=== PATIENT | female | born 1940 | race Caucasian/White ===

== ENCOUNTER → 2017-05-03 | Outpatient (CLI) | payer MEDICARE, OTHER ==
[~2017-05-03] MED LIST: CALCIUM 600MG+D1 TAB PO; COVARYX HS PO; CRESTOR20 MG PO; FLOVENT DI50 MCG/Act IH; MULTI VITAMINS1 TAB PO; NORETHINDRONE AC5 MG PO; OMEGA-31 SGL PO; PROTONIX 40MG T40 MG PO; SINGULAIR 110 MG/TAB PO; TENORMIN 2525 MG/TAB PO; VENTOLIN0.09 MG IH; ZYRTEC 10MG10 MG PO
== END ==
LOC: MC.RAD 08:00
DX: Z12.31 Encounter for screening mammogram for malignant neoplasm of breast (principal)

== ENCOUNTER → 2018-03-29 | Outpatient (CLI) | payer MEDICARE, OTHER | LOC: COL.RAD 07:08 | DX: R91.1 Solitary pulmonary nodule (principal); Z87.09 Personal history of other diseases of the respiratory system | CPT/HCPCS: Q9967 ==

== ENCOUNTER → 2018-06-12 | Outpatient (CLI) | payer MEDICARE, OTHER | LOC: MC.RAD 08:15 | DX: Z12.31 Encounter for screening mammogram for malignant neoplasm of breast (principal) ==

== ENCOUNTER 2019-02-07 17:37 | Emergency (ER) | payer MEDICARE, OTHER ==
[~2019-02-07] VITALS: Ht 162.6 cm; Wt 78.2 kg
[2019-02-07 17:42] VITALS: BP 137/97; TEMP 97.8
[2019-02-07 19:42] VITALS: PULSE 80
== END 2019-02-07 19:44 | disposition home or self-care (01) ==
LOC: COL.ER 17:37
DX: S01.81XA Laceration without foreign body of other part of head, initial encounter (principal); Z23 Encounter for immunization; W19.XXXA Unspecified fall, initial encounter; Y92.009 Unspecified place in unspecified non-institutional (private) residence as the place of occurrence of the external cause

== ENCOUNTER → 2022-05-24 | Outpatient (CLI) | payer MEDICARE, OTHER | LOC: MHCPAIN 10:56 | DX: G83.11 Monoplegia of lower limb affecting right dominant side (principal); M51.36 Other intervertebral disc degeneration, lumbar region; R20.0 Anesthesia of skin | CPT/HCPCS: G0463 ==

== ENCOUNTER → 2022-06-30 | Outpatient (RCR) | payer MEDICARE, OTHER | END | disposition home or self-care (01) | LOC: WSPT | DX: G83.11 Monoplegia of lower limb affecting right dominant side (principal); R26.89 Other abnormalities of gait and mobility ==

== ENCOUNTER → 2022-08-02 | Outpatient (CLI) | payer MEDICARE, OTHER | LOC: MHCPAIN 10:30 | DX: M48.061 Spinal stenosis, lumbar region without neurogenic claudication (principal); G83.11 Monoplegia of lower limb affecting right dominant side; G57.31 Lesion of lateral popliteal nerve, right lower limb | CPT/HCPCS: G0463 ==

== ENCOUNTER → 2022-12-29 | Outpatient (RCR) | payer MEDICARE, OTHER | END | disposition home or self-care (01) | LOC: WSPT | DX: M79.18 Myalgia, other site (principal) ==

== ENCOUNTER → 2023-02-27 | Outpatient (CLI) | payer MEDICARE, OTHER | LOC: COL.RAD 11:31 | DX: M17.12 Unilateral primary osteoarthritis, left knee (principal) ==

== ENCOUNTER → 2024-05-26 | Outpatient (CLI) | payer MEDICARE, OTHER ==
[~2024-05-26] MED LIST changes: +NORCO 325 MG-51 TAB PO
== END ==
LOC: MHCPAIN 09:58
DX: M48.061 Spinal stenosis, lumbar region without neurogenic claudication (principal); G83.11 Monoplegia of lower limb affecting right dominant side; R29.6 Repeated falls
CPT/HCPCS: G0463

== ENCOUNTER → 2024-08-01 | Outpatient (CLI) | payer MEDICARE, OTHER ==
[~2024-08-01] MED LIST changes: +Iohexol 300 - 100 ML VIAL IV ONE; +NS 100 ML IV SCH
== END ==
LOC: COL.RAD 09:03
DX: J84.10 Pulmonary fibrosis, unspecified (principal); K57.30 Diverticulosis of large intestine without perforation or abscess without bleeding; D72.829 Elevated white blood cell count, unspecified
CPT/HCPCS: Q9967

== ENCOUNTER → 2024-08-29 | Outpatient (CLI) | payer MEDICARE, OTHER ==
[~2024-08-29] MED LIST changes: -Iohexol 300 - 100 ML VIAL IV ONE; -NS 100 ML IV SCH
== END ==
LOC: COL.RAD 13:40
DX: D72.829 Elevated white blood cell count, unspecified (principal)